=== PATIENT | male | born 1960 | race Caucasian/White ===

== ENCOUNTER 2016-11-26 08:20 | Inpatient (IN) | payer OTHER ==
--- NOTE | ~2016-11-26 | CO ---
Unit #: [id number] #: [id number] Patient: CATY JONES [id number] [facility] [address] [facility]. [place], [place] [address] [id number] I MR#: [id number] NAME: CATY JONES ROOM: [facility] Age: 56 Sex: M Admission Date: 11/26/2016 : 1960 Attending Physician: Christy Strauss M.D. Primary Care Physician: Guille Bach M.D. Consultation Date: 12/01/2016 CONSULTATION REPORT REASON FOR CONSULTATION Systolic congestive heart failure. 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 In March 2012, the patient did undergo a coronary artery bypass graft x5 for severe atherosclerotic coronary artery disease. At that time, he had a 2D echo done that showed an EF of 35% to 40%. Additional past medical history includes coronary artery disease, hypertension, chronic pain, and tobaccoism. The patient initially went to [facility] ER with the complaint of bilateral leg pain, having trouble walking, and some shortness of breath with ambulating. The patient denied any chest pain, nausea, vomiting, fever, chills, or rigors. He denied any dizziness or syncopal episode. The patient was transferred to [facility] and was admitted for dyspnea and acute COPD exacerbation. The patient also was found to have acute on chronic kidney disease and hypertension. The patient is also being treated for pneumonia. Cardiology was consulted for a BNP of 755. An echo was done here at [facility] and showed that he has a left ventricular ejection fraction of 25% to 30%. The patient was also placed on a fluid restriction. PAST MEDICAL HISTORY 1. On April 11, 2012, the patient underwent a coronary artery bypass graft x5 for severe atherosclerotic coronary artery disease. Grafts include MENDES to mid LAD, individual SVG to diagonal and acute marginal, sequential SVG to the first obtuse marginal and posterior left ventricular branch of the circumflex with right leg endovein harvest. This was done by Dr. Parekh. 2. Echocardiogram from 2011 shows an EF of 35% to 40%. 3. Coronary artery disease. 4. Hypertension. 5. Bilateral leg pain, possibly neuropathy. 6. Chronic pain syndrome. 7. Chronic kidney disease. 8. Chronic obstructive pulmonary disease. 9. Tobaccoism. PAST SURGICAL HISTORY Coronary artery bypass grafting x5 as detailed above. Unit #: [id number] #: [id number] Patient: CATY JONES ALLERGIES No known allergies. HOME MEDICATIONS 1. Labetalol 200 mg p.o. 3 times daily p.r.n. 2. Amlodipine 10 mg p.o. daily p.r.n. 3. Hydrocodone 10 mg 1 tab p.o. 3 times daily p.r.n. FAMILY HISTORY Diabetes and hypertension. SOCIAL HISTORY Patient endorses tobaccoism. He smokes approximately one pack per day but is attempting to cut down. He denies any alcohol or illicit drug abuse. The patient lives with his father. REVIEW OF SYSTEMS A complete 12-point review of systems was done and the findings are as detailed above. PHYSICAL EXAMINATION GENERAL: Patient is awake, alert, and sitting up in bed. VITAL SIGNS: Temperature 97.5, heart rate 67, respirations 20, blood pressure 142/45, and he is oxygenation 97%. HEENT: Head is atraumatic and normocephalic. Pupils are equal, round, and reactive. Extraocular movements are intact. No drainage from ears or nares. NECK: Supple. Trachea is midline. No JVD. Normal carotid upstrokes. LUNGS: Diminished bilaterally. No wheezes, rales, or rhonchi. CARDIOVASCULAR: S1 and S2, regular rate and rhythm. ABDOMEN: Soft, nontender, and nondistended. Bowel sounds are positive in all four quadrants. No hepatosplenomegaly is appreciated. SKIN: Appears to be warm, dry, and intact, without any unusual rashes or lesions. EXTREMITIES: No clubbing or cyanosis. Patient has +1 bilateral lower extremity edema. NEUROLOGIC: Alert and oriented x3. He is pleasant and conversant. No focal deficits. Cranial nerves II-XII intact. DIAGNOSTIC STUDIES LABORATORY: BNP 755. Sodium 131, potassium 5.5, chloride 102, CO2 of 20, BUN 56, creatinine 2.2, and glucose 278. Troponin is less than 0.03. TSH 0.51. ASSESSMENT 1. Acute chronic obstructive pulmonary disease exacerbation. 2. Acute systolic congestive heart failure with an ejection fraction of 25% to 30%. 3. Pneumonia. 4. Acute on chronic kidney disease. 5. Hypertension. 6. Hyperlipidemia. 7. Coronary artery disease with history of coronary artery bypass grafting x5. 8. Tobaccoism. PLAN Will attempt to obtain cardiac catheterization report or open heart report Unit #: [id number] #: [id number] Patient: CATY JONES from [facility]. Will start the patient on aspirin 81 mg p.o. daily and Lipitor 10 mg p.o. daily. At this time, will stop the patient's labetalol and start the patient on Coreg 12.5 mg p.o. b.i.d. and hold for systolic blood pressure below 100 or heart rate less than 55. Please note that I, Kellie Romano, did not interview or examine the patient on December 01, 2016. This was done by Dr. Piedad Hinojosa. Dictated by... Kellie Romano A.P.R.N. for Piedad Hinojosa M.D. AM/am TD: 12/02/2016 15:33 JOB #: [id number] CONSULTATION REPORT X Kellie Romano APRN X CONSULTATION REPORT
--- NOTE | ~2016-11-26 | US84 ---
[id number] [facility]. [facility] [address] [place], [place] [address] [id number] I MR#: [id number] Acc #: [id number] NAME: CATY JONES : 1960 SEX: M STUDY DATE/TIME: 11/26/2016 13:49 UNIT: C2A ROOM: 217 STUDY DESCRIPTION: US LE Veins Complete Gianni Stdy Attending Physician: Christy Strauss M.D. Ordering Physician: Christy Strauss M.D. Primary Care Physician: Guille Bach M.D. MEDICAL IMAGING REPORT This report is preliminary unless electronic signature is present EXAM Bilateral lower extremity venous duplex, 11/26/2016 HISTORY Bilateral lower extremity pain for 2 days, calf pain and tightness, evaluate for deep vein thrombosis. TECHNIQUE Venous ultrasound examination of both lower extremities was performed using grayscale, spectral Doppler and color flow Doppler imaging. FINDINGS The examination is negative. There is no evidence of deep venous thrombus from the groin to the lower calf bilaterally. Visualized greater saphenous veins are also patent. IMPRESSION Negative examination. No evidence of lower extremity deep venous thrombosis. Dictated by... Phil Nazario M.D. THIS IS AN ELECTRONICALLY VERIFIED REPORT Phil Nazario M.D. at 11/27/2016 6:06 AM BRYAN/charli TD: 11/26/2016 21:43 JOB #: [id number] MEDICAL IMAGING REPORT COPY
--- NOTE | ~2016-11-26 | PFT ---
[id number] [facility] [address] [facility]. [place], [place] [address] [id number] MR#: [id number] NAME: CATY JONES ROOM: 217 SEX: M STUDY DATE/TIME: 11/28/2016 : 1960 AGE: 56 STUDY DESCRIPTION: Attending Physician: Christy Strauss M.D. Primary Care Physician: Guille Bach M.D. PULMONARY DIAGNOSTIC REPORT EXAM Pulmonary function test FINDINGS Spirometry is suggestive of a restrictive defect with an FVC of 2.94 L, 62% of predicted. Flow-volume loop is consistent with a restrictive defect. Please note restrictive defect cannot be confirmed by spirometry alone and would suggest full PFTs with lung volumes and diffusion capacity if clinically indicated. Dictated by... Enrique Parisi M.D. WOL/cf TD: 11/28/2016 16:53 JOB #: [id number] PULMONARY DIAGNOSTIC REPORT
--- NOTE | ~2016-11-26 | CT4 ---
[facility]. [facility] A Service of [facility] RADIOLOGY TEXT RESULTS PATIENT: CATY JONES LOCATION: [facility] - : [birth year] UNIT #: [id number] AGE: [address]: Christy Strauss MD SEX: M ORDER DR: [id number] [facility] [address] [facility]. [place], [place] [address] [id number] I MR#: [id number] Acc #: [id number] NAME: CATY JONES : 1960 SEX: M STUDY DATE/TIME: 11/30/2016 10:48 UNIT: A U ROOM: [facility] STUDY DESCRIPTION: CT Abd and Pelv Wo Cont Attending Physician: Christy Strauss M.D. Ordering Physician: Christy Strauss M.D. Primary Care Physician: Guille Bach M.D. MEDICAL IMAGING REPORT This report is preliminary unless electronic signature is present EXAM CT of the abdomen and pelvis without contrast INDICATIONS 56-year-old male with pain all over, back pain, chronic renal failure, hypertension. TECHNIQUE CT of the abdomen and pelvis was performed without contrast. Coronal and sagittal reformatted images obtained. No comparisons. This CT exam was performed with one or more of the following radiation dose reduction techniques: automatic control, adjustment of mA and/or kV according to patient size, and iterative reconstruction. FINDINGS Please see separately dictated CT of the chest for findings above the diaphragm. The liver is unremarkable. The gallbladder is contracted. The spleen is unremarkable. There are intrarenal vascular calcifications. The kidneys are otherwise unremarkable. The adrenal glands and pancreas are unremarkable. PELVIS: Colon is unremarkable. The appendix is normal. No free fluid. Bilateral fat-containing inguinal hernias. Diffuse subcutaneous edema. The bone windows demonstrate chondrocalcinosis in the symphysis pubis as well as degenerative changes of the lumbar spine. IMPRESSION 1. Trace pleural fluid in the lung bases. 2. No acute intraabdominal or pelvic abnormality. 3. Additional findings as described Dictated by... Luis Arias M.D. [facility] A Service of [facility] RADIOLOGY TEXT RESULTS PATIENT: CATY JONES LOCATION: [facility] 307-01 : [birth year] UNIT #: [id number] AGE: [address]: Christy Strauss MD SEX: M ORDER DR: THIS IS AN ELECTRONICALLY VERIFIED REPORT Luis Arias M.D. at 12/02/2016 10:44 AM JH/luca TD: 12/01/2016 04:26 JOB #: [id number] MEDICAL IMAGING REPORT COPY
--- NOTE | ~2016-11-26 | CO ---
Unit #: [id number] #: [id number] Patient: CATY JONES [id number] [address] [place], [place] [address] [id number] I MR#: [id number] NAME: CATY JONES. ROOM: 217 Age: 56 Sex: M Admission Date: 11/26/2016 : 1960 Attending Physician: Christy Strauss M.D. Primary Care Physician: Guille Bach M.D. Consultation Date: 11/27/2016 CONSULTATION REPORT REASON FOR CONSULT Shortness of breath. HISTORY OF PRESENT ILLNESS This is a 56-year-old male with past medical history significant for hypertension, coronary artery disease status post CABG and extensive smoking since age 15, who presented to [facility] ER with complaint of bilateral lower extremity tenderness, burning sensation and stiffness. Patient also noted that he has been short of breath for the last few weeks. He denied any significant dyspnea at baseline. Patient stated that during the wintertime he always gets some wheezing and congestion. Patient denied any fever, chills or sore throat. PAST MEDICAL HISTORY 1. Hypertension. 2. Coronary artery disease. 3. Tobacco abuse. 4. Chronic pain. HOME MEDICATION 1. Labetalol. 2. Amlodipine. 3. Hydrocodone. SOCIAL HISTORY Patient is a lifelong smoker. He started smoking at age 15. He smokes currently one pack over a week but he used to smoke one pack per day, no history of alcohol or drug abuse. PAST SURGICAL HISTORY CABG. ALLERGIES No known drug allergy. FAMILY HISTORY Diabetes and hypertension. REVIEW OF SYSTEMS Twelve-point review of systems was obtained and was negative except for what was mentioned in the HPI. Unit #: [id number] #: [id number] Patient: CATY JONES PHYSICAL EXAMINATION GENERAL: The patient is lying comfortably in no acute distress. VITAL SIGNS: Blood pressure 132/62. Respiratory rate 21. HEENT: Normocephalic and atraumatic. PERRLA. EOMI. NECK: Supple. No JVD. No lymphadenopathy. CHEST: Decreased breath sounds bilaterally but no overt wheezing or crackles. HEART: S1, S2. No murmur, gallops or rubs. ABDOMEN: Soft, nontender. Bowel sound is positive. No hepatosplenomegaly. EXTREMITIES: +1 edema. SKIN: No rashes. RESIDENT INTERN: Awake, alert, oriented x3. No focal motor/sensory deficit. DIAGNOSTIC STUDIES LABORATORY: Creatinine 2.1, sodium 134, calcium 8.0, white blood count 10.8, hemoglobin 12.2. IMAGING: Tests unavailable. ASSESSMENT 1. Dyspnea. 2. Bilateral lower extremity edema. 3. Hypertension. 4. Coronary artery disease. 5. Rule out chronic obstructive pulmonary disease. 6. Smoking. 7. Hyperglycemia. PLAN 1. Patient is hemodynamically stable on 1 L nasal cannula at this point. 2. Physical exam is inconsistent with clear and overt COPD exacerbation but COPD cannot be ruled out as an underlying etiology of chronic shortness of breath. 3. Patient will need bedside spirometry and 2D echo. 4. Will obtain BNP. 5. Will continue patient on bronchodilator. 6. IV steroid probably can be discontinued tomorrow. Dictated by... Danish He M.D. EA/keturah TD: 11/27/2016 19:22 JOB #: [id number] Unit #: [id number] #: [id number] Patient: CATY JONES Dru CONSULTATION REPORT X DANISH LYONS MD CONSULTATION REPORT
--- NOTE | ~2016-11-26 | XA59 ---
[facility] A Service of [facility] RADIOLOGY TEXT RESULTS PATIENT: CATY JONES LOCATION: [facility] 307-01 : [birth year] UNIT #: [id number] AGE: [address]: Christy Strauss MD SEX: M ORDER DR: [id number] [facility] [address] [place], [place] [address] [id number] I MR#: [id number] Acc #: [id number] NAME: CATY JONES. : 1960 SEX: M STUDY DATE/TIME: 12/05/2016 10:07 UNIT: SEDOF ROOM: [facility] STUDY DESCRIPTION: XA BX Perc Renal Attending Physician: Christy Strauss M.D. Ordering Physician: Gianni Garcia Jr., M.D. Primary Care Physician: Guille Bach M.D. MEDICAL IMAGING REPORT This report is preliminary unless electronic signature is present EXAM XA biopsy percutaneous renal. DATE OF EXAM 12/05/2016 CLINICAL HISTORY Renal insufficiency, acute kidney injury superimposed on chronic renal insufficiency. Proteinuria. Hepatitis C. TECHNIQUE NOTE: This CT exam was performed with one or more of the following radiation dose reduction techniques: automatic exposure control, adjustment of mA and/or kV according to patient size, and iterative reconstruction. PROCEDURE Successful CT-guided core biopsy of the left kidney. 3 generic core specimens were obtained and sent for testing as requested without complication. Standard sterile technique was followed. FINDINGS Please see CT-guided generic renal biopsy for results. Dictated by... Aravind Norwood M.D. THIS IS AN ELECTRONICALLY VERIFIED REPORT Aravind Norwood M.D. at 12/06/2016 3:36 PM LALO/kendall TD: 12/05/2016 15:47 [facility] A Service of [facility] RADIOLOGY TEXT RESULTS PATIENT: CATY JONES LOCATION: [facility] 307-01 : [birth year] UNIT #: [id number] AGE: [address]: Christy Strauss MD SEX: M ORDER DR: JOB #: [id number] MEDICAL IMAGING REPORT COPY
--- NOTE | ~2016-11-26 | HP ---
Unit #: [id number] #: [id number] Patient: CATY JONES [id number] [address] [place], [place] [address] [id number] MR#: [id number] NAME: CATY JONES ROOM: 217 Age: 56 Sex: M Admission Date: 11/26/2016 : 1960 Attending Physician: Christy Strauss M.D. Primary Care Physician: Guille Bach M.D. HISTORY AND PHYSICAL CHIEF COMPLAINT Leg pain, shortness of breath, and just not feeling right. HISTORY OF PRESENT ILLNESS This is a 56-year-old male who has a past medical history of hypertension, coronary artery disease, status post CABG, bilateral leg pain, tobacco abuse, chronic pain, came to [facility] ER with a complaint of bilateral leg pain, burning in the feet bilateral, which has been going on for some time, having problem with walking. Also complained of some shortness of breath, especially on ambulating. The patient is a smoker, used to smoke two packs per day and now he smokes only 1/2 to 1 pack per day. Does not complain of any chest pain. He does complain of anxiety issues and according to him he lives with his dad and gets very anxious. His primary care provider is Dr. Tapia with Dr. Hampton. Does not complain of any fever, chills or rigors. No complaint of any numbness or tingling of the left upper extremity. No complaint of dizziness or syncopal episode. PAST MEDICAL HISTORY 1. Hypertension. 2. Coronary artery disease, status post CABG. 3. Tobacco abuse. 4. Chronic pain. HOME MEDICATIONS Labetalol 200 mg 3 times a day; amlodipine 10 mg daily; hydrocodone 1 tablet 3 times a day. SOCIAL HISTORY Patient is a smoker. He smoked almost one pack per day, according to him, he has cut down. He used to smoke two packs per day. No history of alcohol abuse or drug abuse. He lives with his father. PAST SURGICAL HISTORY History of CABG in the past. ALLERGIES No known drug allergies. FAMILY HISTORY Significant for diabetes and hypertension. REVIEW OF SYMPTOM As per history of presenting illness. Complete twelve point review of system was done and findings were as above. Unit #: [id number] #: [id number] Patient: CATY JONES PHYSICAL EXAMINATION GENERAL: The patient is lying comfortably in bed in no respiratory distress. VITAL SIGNS: Blood pressure is 137/51, respiratory rate is 17, pulse is 64, temperature 97.9. HEENT: Head is normocephalic. Eyes movements are normal. NECK: Supple. Mouth normal mucosa. The patient is edentulous. CHEST: Decreased air entry bilateral. CVS: S1 and S2 positive, regular rhythm. ABDOMEN: Soft. EXTREMITIES: Trace edema. Otherwise stable. Pulses are palpable. FLY SETTER: Awake, alert and oriented x3. No focal neurological deficit. LYMPHATIC: There is no neck or cervical lymphadenopathy. PSYCH: Seems to be kind of anxious. DIAGNOSTIC STUDIES LABORATORY STUDIES: Workup so far done - WBC 10.8, hemoglobin 12.2, hematocrit 36.7 and platelet count of 182. Sodium 135, potassium 4.6, chloride 106, BUN 21, creatinine 2.1. CPK 136. Urinalysis shows two to five granulite cast, 3+ protein. Urine drug screen is positive for opiates. Glucose is 122. Hemoglobin A1c 6.1. Ultrasound of bilateral lower extremity was done, which was negative for any DVT. Ultrasound of kidneys have been done, which shows normal bilateral renal ultrasound. ASSESSMENT AND PLAN The patient is being admitted to med/surg unit with: 1. Dyspnea, possible COPD exacerbation. 2. Acute on chronic kidney disease. 3. Hypertension. 4. Coronary artery disease, status post CABG. 5. Bilateral leg pain, possible neuropathy. 6. Tobacco abuse. 7. Chronic pain. 8. Hyperglycemia. PLAN Admit to med/surg unit. Dr. Garcia has been consulted. Patient was treated with IV fluids, most likely he has chronic kidney disease. Lipid profile will be done. Neurontin is being started for a bilateral leg pain, possible neuropathy. IV Solu-Medrol 40 mg q.8 is being given; Symbicort 160/4.5 one puff b.i.d. is being started; spirometry bedside will be done. D-dimer will be don't. Aspirin 81 mg daily is being done. Plan of care has been discussed with patient. Tobacco cessation counseling done. Dictated by Supa Castañeda TD: 11/27/2016 12:42 JOB #: [id number] Unit #: [id number] #: [id number] Patient: CATY JONES HISTORY AND PHYSICAL X Christy Strauss MD X HISTORY AND PHYSICAL
--- NOTE | ~2016-11-26 | US6 ---
[facility] A Service of [facility] RADIOLOGY TEXT RESULTS PATIENT: CATY JONES LOCATION: [facility] : 60 UNIT #: [id number] AGE: [address]: Christy Strauss MD SEX: M ORDER DR: [id number] [facility] [address] [place], [place] [address] [id number] I MR#: [id number] Acc #: [id number] NAME: CATY JONES : 1960 SEX: M STUDY DATE/TIME: 12/05/2016 8:16 UNIT: A PCU ROOM: [facility] STUDY DESCRIPTION: US Abdominal Limited Attending Physician: Christy Strauss M.D. Ordering Physician: Aung Buckner M.D. Primary Care Physician: Guille Bach M.D. MEDICAL IMAGING REPORT This report is preliminary unless electronic signature is present EXAM Right upper quadrant abdominal ultrasound. DATE OF EXAM 12/05/2016 INDICATIONS Hepatitis C. Post-prandial generalized abdominal pain for the past 20 years. PROCEDURE Grewal-scale and Doppler imaging right upper quadrant of the abdomen. COMPARISON CT from 11/30/2016. FINDINGS Visualized portions of pancreas are unremarkable. The liver measures 16.9 cm. No liver mass on submitted images. Right kidney measures 11.7 cm. Unremarkable gallbladder. Common duct measures 3 mm. IMPRESSION Negative right upper quadrant abdominal ultrasound. Dictated by... Ben Eid M.D. THIS IS AN ELECTRONICALLY VERIFIED REPORT Ben Eid M.D. at 12/06/2016 7:04 AM EED/kendall TD: 12/05/2016 16:03 [facility] A Service [facility] RADIOLOGY TEXT RESULTS PATIENT: CATY JONES LOCATION: [facility] : 60 UNIT #: [id number] AGE: [address]: Christy Strauss MD SEX: M ORDER DR: SARA #: [id number] MEDICAL IMAGING REPORT COPY
--- NOTE | ~2016-11-26 | CR63 ---
[facility] A Service of [facility] RADIOLOGY TEXT RESULTS PATIENT: CATY JONES LOCATION: A : 60 UNIT #: [id number] AGE: [address]: Christy Strauss MD SEX: M ORDER DR: [id number] [facility] [address] [place], [place] [address] [id number] I MR#: [id number] Acc #: [id number] NAME: CATY JONES : 1960 SEX: M STUDY DATE/TIME: 11/27/2016 18:54 UNIT: [facility] ROOM: [facility] STUDY DESCRIPTION: CR Chest 2 View Attending Physician: Christy Strauss M.D. Ordering Physician: Gianni Garcia Jr., M.D. Primary Care Physician: Guille Bach M.D. MEDICAL IMAGING REPORT This report is preliminary unless electronic signature is present EXAM PA and lateral chest. HISTORY Shortness of air for 1 day. FINDINGS 2 views of the chest demonstrate mild cardiac enlargement. Pulmonary vascularity is normal. No airspace infiltrates or effusions. Sternotomy with mediastinal clips and markers. Mild hypertrophic spurring, upper and lower thoracic spine. No active disease in the lungs. IMPRESSION 1. Mild cardiac enlargement. 2. Prior CABG. 3. No focal infiltrates. 1. Dictated by... Ethan Lazo M.D. THIS IS AN ELECTRONICALLY VERIFIED REPORT Ethan Lazo M.D. at 11/28/2016 3:55 PM DFL/pc TD: 11/28/2016 08:39 JOB #: [id number] MEDICAL IMAGING REPORT COPY
--- NOTE | ~2016-11-26 | CT57 ---
[facility] A Service of [facility] & [facility] RADIOLOGY TEXT RESULTS PATIENT: CATY JONES LOCATION: [facility] - : 60 UNIT #: [id number] AGE: [address]: Christy Strauss MD SEX: M ORDER DR: [id number] [facility] [address] [place], [place] [address] [id number] I MR#: [id number] Acc #: [id number] NAME: CATY JONES : 1960 SEX: M STUDY DATE/TIME: 11/30/2016 15:15 UNIT: A [facility] ROOM: [facility] STUDY DESCRIPTION: CT Chest Wo Cont Attending Physician: Christy Strauss M.D. Ordering Physician: Christy Strauss M.D. Primary Care Physician: Guille Bach M.D. MEDICAL IMAGING REPORT This report is preliminary unless electronic signature is present EXAM CT of the chest without contrast INDICATIONS 56-year-old male with shortness of breath since yesterday. TECHNIQUE CT of the chest was performed without contrast. Coronal and sagittal reformatted images obtained. There are no comparisons available. This CT exam was performed with one or more of the following radiation dose reduction techniques: automatic control, adjustment of mA and/or kV according to patient size, and iterative reconstruction. FINDINGS There is a small airspace consolidation in the medial left lower lobe compatible with pneumonia. There is a trace pleural fluid bilaterally. There is minimal bibasilar atelectasis. There are mildly prominent but nonspecific mediastinal lymph nodes. These may be reactive given the findings in the lungs. There has been a prior sternotomy CABG. Please refer to separately dictated CT of the abdomen and pelvis for findings in the upper abdomen. Bone windows are unremarkable. IMPRESSION 1. There is a small airspace consolidation in the medial left lower lobe that is consistent with pneumonia. Follow up to clearing is recommended. 2. Trace pleural fluid bilateral. Dictated by... Luis Arias M.D. THIS IS AN ELECTRONICALLY VERIFIED REPORT Luis Arias M.D. at 12/02/2016 10:44 AM [facility] A Service of [facility] & [facility] / [facility] RADIOLOGY TEXT RESULTS PATIENT: CATY JONES LOCATION: [facility] 307-01 : 60 UNIT #: [id number] AGE: [address]: Christy Strauss MD SEX: M ORDER DR: JH/luca TD: 12/01/2016 04:00 JOB #: [id number] MEDICAL IMAGING REPORT COPY
--- NOTE | ~2016-11-26 | CO ---
Unit #: [id number] #: [id number] Patient: CATY GILLIS [id number] [address] [place], [place] [address] [id number] Maulik MR#: [id number] NAME: CATY GILLIS ROOM: 217 Age: 56 Sex: M Admission Date: 11/26/2016 : 1960 Attending Physician: Christy Strauss M.D. Primary Care Physician: Guille Bach M.D. Consultation Date: 11/26/2016 CONSULTATION REPORT REASON FOR CONSULTATION Acute on chronic kidney disease. HISTORY OF PRESENT ILLNESS Mr. Gillis is a 56-year-old gentleman whom I met for the first time last week in the office as a new patient. My dictation is still pending typing up from our service, but I recall having had seen him for abnormal creatinine levels and poorly controlled blood pressure. Review of his labs that were sent for the appointment showed that his creatinine has been anywhere between about 1.6 and 1.8 over the last few months. He has had very difficult to control blood pressure and a history of noncompliance. He had been at least a year or so with no medical treatment before seeking a new primary care doctor. He does have a history of heart disease and does continue to smoke. At that visit, we had increased his labetalol from 100 to 200 mg t.i.d. He states that his blood pressure was still running high this weekend, but looks like it is doing better here. His main complaint about coming to the emergency room was of lower extremity pain and possible swelling. There was a concern about a possible DVT, so he was sent to [facility] for evaluation. Dopplers have been done, but results are pending. He denies any fevers or chills. No urinary complaints. PAST MEDICAL HISTORY Significant for hypertension, chronic kidney disease, coronary artery disease, chronic pain syndrome, and tobacco abuse. PAST SURGICAL HISTORY He has had CABG. HOME MEDICATIONS Labetalol 200 mg t.i.d., amlodipine 10 mg a day, and hydrocodone p.r.n. ALLERGIES He has no known drug allergies. FAMILY HISTORY Significant for diabetes and hypertension. SOCIAL HISTORY The patient is a smoker. He does use hydrocodone at home. No alcohol abuse or IV drug use that I am aware of. REVIEW OF SYSTEMS A complete 12-point review of systems was completed with the above Unit #: [id number] #: [id number] Patient: CATY GILLIS. In addition, he denies any fevers or chills. No headache or dizziness. No blurry vision. No nosebleed, sore throat, or earache. No chest pain or palpitations. Some cough. No hemoptysis. No nausea, vomiting, or diarrhea. No dysuria. No hematuria. No rashes or itching. No flank pain. No night sweats or hot flashes. No intolerance to heat or cold. No bleeding issues. No known trauma to the legs causing the pain and swelling, but he does state that he walked a lot this past weekend. Unless otherwise indicated, the review of systems was negative. PHYSICAL EXAMINATION VITAL SIGNS: The patient is afebrile, pulse 69, respiratory rate 17, blood pressure 146/57. GENERAL: This is a 56-year-old male, who is alert, appears anxious and fidgety, but in no acute distress. HEENT: Head is atraumatic and normocephalic. Eyes show pink conjunctivae with no scleral icterus. No nasal drainage or nosebleed. Oropharynx is moist. No thrush. NECK: Shows no rigidity, no JVD. HEART: Regular rate and rhythm with no murmurs, gallops, or rubs appreciated. LUNGS: Mostly clear with no wheezing. Breathing is nonlabored. ABDOMEN: Soft, nontender, and nondistended. Bowel sounds are present. EXTREMITIES: No lower extremity cyanosis noted. He does have trace lower extremity edema, nonpitting in nature. SKIN: Skin in lower legs that appear to be tender to palpation. Skin is without rashes. MUSCULOSKELETAL: No CVA tenderness to palpation. NEUROLOGIC: Cranial nerves grossly intact with no gross motor deficits. LYMPHATIC: There is no neck or cervical lymphadenopathy. PSYCHIATRIC: It is noteworthy for some apparent anxiety, but no depression symptoms and appears to have a normal affect. DIAGNOSTIC STUDIES LABORATORY RESULTS: Blood sugar tonight 180. CPK level was normal. Chemistry earlier this morning showed a potassium of 4.6, creatinine was up to 2.1. CBC showed a white count of 10.8, hemoglobin 12.2, platelet count 182 with no peripheral eosinophilia. Again, recalling from the office prior baseline creatinine had been in the 1.6 to 1.8 range. ASSESSMENT AND PLAN 1. Mild acute on underlying chronic kidney disease, stage 3. It was thought in the office his chronic kidney disease was due to hypertensive nephrosclerosis and small vessel atherosclerotic disease. He has a history of noncompliance and poorly controlled blood pressure. His acute kidney injury also may be due to hypertensive issues as he says it was running high over the weekend, but seems to be doing better here. I do feel we can discontinue his fluids since his CPK level was okay. We will check urine and urine studies as well as a kidney ultrasound. Of note, he did get Toradol in the emergency room for pain, so it would not surprise me if his creatinine is not higher tomorrow. 2. Hypertension. Home medications have been renewed and blood pressure seems reasonable at this time. 3. Leg pain. Question whether this is neuropathy as he does have elevated sugars. Hemoglobin A1c is pending. I will try him on some Neurontin. Dopplers are pending and he did get a dose of Lovenox in the emergency room. 4. Tobacco abuse. Counseling was given. 5. History of coronary artery bypass grafting. It is not clear why he is Unit #: [id number] #: [id number] Patient: CATY GILLIS not on an aspirin or statin. I will check a lipid profile in the morning. 6. History of noncompliance. 7. Chronic pain syndrome. I would like to thank Dr. Strauss for this consult and the opportunity to participate in evaluation and care of Mr. Gillis. Dictated by... Gianni Garcia Jr., M.D. GALEN/bang TD: 11/26/2016 23:20 JOB #: [id number] CONSULTATION REPORT X Gianni Garcia MD X CONSULTATION REPORT
--- NOTE | ~2016-11-26 | XA59 ---
[facility] A Service of [facility] & [facility] RADIOLOGY TEXT RESULTS PATIENT: CATY JONES LOCATION: [facility] : 60 UNIT #: [id number] AGE: [address]: Christy Strauss MD SEX: M ORDER DR: [id number] [id number] [facility]. [place], [place] [address] [id number] MR#: [id number] Acc #: [id number] NAME: CATY JONES. : 1960 SEX: M STUDY DATE/TIME: 12/04/2016 10:49 UNIT: A PCU ROOM: [facility] STUDY DESCRIPTION: XA BX Perc Renal Attending Physician: Christy Strauss M.D. Ordering Physician: Gianni Garcia Jr., M.D. Primary Care Physician: Guille Bach M.D. MEDICAL IMAGING REPORT This report is preliminary unless electronic signature is present PROCEDURE Attempted right kidney biopsy INDICATIONS 56-year-old male with chronic renal insufficiency. MEDICATIONS 3 mg of Versed IV and 50 mcg Fentanyl IV. Conscious sedation time was monitored by appropriately credentialed radiology nursing staff. The risks, benefits and alternatives of the procedure were discussed with the patient and informed consent was obtained. In the procedure room a time was performed confirming correct patient and procedure. All elements of maximum sterile-barrier technique utilized according to guidelines appropriate for the procedure. TECHNIQUE/FINDINGS Patient was placed on his stomach and preliminary CT scan was performed identifying the kidneys. The skin overlying the left kidney was prepped and draped usual sterile fashion. 1% lidocaine utilized to anesthetize the skin and underlying subcutaneous tissues. Next a small 25-gauge needle was advanced just beneath the skin surface and preliminary CT scan was performed to identify the needle trajectory. However, at this time the patient became very agitated and could not lie still. Attempts were made to lay the patient on his side to see if it was more comfortable, however, he was still quite agitated and was unable to lay still despite the use of conscious sedation. The procedure was then cancelled. Recommend rescheduling the procedure under anesthesia if the patient is in need of a kidney biopsy. The patient was then transported back to his room. IMPRESSION Attempted kidney biopsy was unsuccessful as the patient was unable to [facility] Service of [facility] RADIOLOGY TEXT RESULTS PATIENT: CATY JONES LOCATION: [facility] 307-01 : 60 UNIT #: [id number] AGE: [address]: Christy Strauss MD SEX: M ORDER DR: still despite conscious sedation and was quite agitated. Suggest rescheduling the patient with anesthesia for biopsy. Dictated by... Luis Arias M.D. THIS IS AN ELECTRONICALLY VERIFIED REPORT Luis Arias M.D. at 12/06/2016 7:33 AM Wyatt TD: 12/05/2016 06:44 JOB #: [id number] MEDICAL IMAGING REPORT COPY
--- NOTE | ~2016-11-26 | US77 ---
[facility] A Service of [facility] & [facility] RADIOLOGY TEXT RESULTS PATIENT: CATY JONES LOCATION: A : 60 UNIT #: [id number] AGE: [address]: Christy Strauss MD SEX: M ORDER DR: [id number] [facility] [address] [place], [place] [address] [id number] I MR#: [id number] Acc #: [id number] NAME: CATY JONES : 1960 SEX: M STUDY DATE/TIME: 11/26/2016 21:53 UNIT: [facility] ROOM: [facility] STUDY DESCRIPTION: US Kidney Bilateral Complete Attending Physician: Christy Strauss M.D. Ordering Physician: Gianni Garcia Jr., M.D. Primary Care Physician: Guille Bach M.D. MEDICAL IMAGING REPORT This report is preliminary unless electronic signature is present EXAM Bilateral renal ultrasound, 11/26/2016 HISTORY Chronic kidney disease. Diabetes. Hypertension. BUN 21. Creatinine 2.1. GFR 34.9. COMPARISON None FINDINGS The right kidney measures 11.7 x 5.9 x 6.5 cm. The left kidney measures 13.8 x 6.7 x 7.4 cm. Both kidneys maintain normal cortical thickness and echotexture. No cystic or solid renal lesion, shadowing stone or hydronephrosis is seen. Urinary bladder is distended with fluid but otherwise appears unremarkable. IMPRESSION Normal bilateral renal ultrasound. Dictated by... Olga Gooden M.D. THIS IS AN ELECTRONICALLY VERIFIED REPORT Olga Gooden M.D. at 11/27/2016 2:09 PM Yan TD: 11/27/2016 10:02 JOB #: [id number] MEDICAL IMAGING REPORT COPY
--- NOTE | ~2016-11-26 | CT134 ---
[facility] A Service of [facility] RADIOLOGY TEXT RESULTS PATIENT: CATY JONES LOCATION: [facility] : 60 UNIT #: [id number] AGE: [address]: Christy Strauss MD SEX: M ORDER DR: [id number] [place], [place] [address] [id number] I MR#: [id number] Acc #: [id number] NAME: CATY JONES : 1960 SEX: M STUDY DATE/TIME: 12/05/2016 10:07 UNIT: C3A PCU ROOM: [facility] STUDY DESCRIPTION: CT Guide Attending Physician: Christy Strauss M.D. Ordering Physician: Christy Strauss M.D. Primary Care Physician: Guille Bach M.D. MEDICAL IMAGING REPORT This report is preliminary unless electronic signature is present EXAM CT-guided generic renal biopsy. DATE OF EXAM 12/05/2016 CLINICAL HISTORY Renal insufficiency, acute kidney injury superimposed on chronic renal insufficiency. Proteinuria. Hepatitis C. TECHNIQUE NOTE: This CT exam was performed with one or more of the following radiation dose reduction techniques: automatic exposure control, adjustment of mA and/or kV according to patient size, and iterative reconstruction. PROCEDURE Informed consent was obtained. Sedation was provided by the Department of Anesthesia. The skin site was selected with CT guidance and marked, sterilely prepped and draped and locally anesthetized. An INRAD needle gun was used to obtain core specimens from the uka-by-xvero pole of the left kidney. There are no complications. The patient tolerated the procedure well. IMPRESSION Successful CT-guided core biopsy of the left kidney. 3 generic core specimens were obtained and sent for testing as requested without complication. Standard sterile technique was followed. Dictated by... [facility] A Service [facility] RADIOLOGY TEXT RESULTS PATIENT: CATY JONES LOCATION: [facility] : 60 UNIT #: [id number] AGE: [address]: Christy Strauss MD SEX: M ORDER DR: Aravind Norwood M.D. THIS IS AN ELECTRONICALLY VERIFIED REPORT Aravind Norwood M.D. at 12/06/2016 3:36 PM LALO/kendall TD: 12/05/2016 15:44 JOB #: [id number] MEDICAL IMAGING REPORT COPY
--- NOTE | ~2016-11-26 | NM69 ---
[facility] A Service of [facility] & [facility] RADIOLOGY TEXT RESULTS PATIENT: CATY JONES LOCATION: [facility] : 60 UNIT #: [id number] AGE: [address]: Christy Strauss MD SEX: M ORDER DR: [id number] [facility] [address] [place], [place] [address] [id number] I MR#: [id number] Acc #: [id number] NAME: CATY JONES : 1960 SEX: M STUDY DATE/TIME: 11/28/2016 12:15 UNIT: [facility] ROOM: [facility] STUDY DESCRIPTION: NM Pulm Vent and Perf Attending Physician: Christy Strauss M.D. Ordering Physician: Christy Strauss M.D. Primary Care Physician: Guille Bach M.D. MEDICAL IMAGING REPORT This report is preliminary unless electronic signature is present EXAM Ventilation and perfusion lung INDICATIONS Elevated D-dimer and dyspnea, lower leg swelling and pain, shortness of air started 2 days ago. The ventilation study is done with 32.1 mCi of Tc99m DTPA in aerosol form. The perfusion study is done with 5.6 mCi technetium 99m MAA. The perfusion ventilation images are normal. There is no evidence pulmonary bullous. IMPRESSION Study, with no evidence of pulmonary embolus. Dictated by... Jose Daniel Flores M.D. THIS IS AN ELECTRONICALLY VERIFIED REPORT Jose Daniel Flores M.D. at 11/28/2016 3:25 PM Bridgett TD: 11/28/2016 14:46 JOB #: [id number] MEDICAL IMAGING REPORT COPY
--- NOTE | ~2016-11-26 | EKG ---
PATIENT: CATY JONES UNIT #: [id number] Ventricular Rate: 60 BPM Atrial Rate: 60 BPM P-R Interval: 168 ms QRS Duration: 100 ms Q-T Interval: 428 ms QTC Calculation(Bezet): 428 ms P [place]: 36 degrees Calculated R [place]: 113 degrees Calculated T [place]: 118 degrees Diagnosis Line: Normal sinus rhythm Diagnosis Line: Left posterior fascicular block Diagnosis Line: Nonspecific ST abnormality Diagnosis Line: Abnormal ECG Diagnosis Line: No previous ECGs available Diagnosis Line: Confirmed by VANNESSA MAR MD ([id number]) on 12/04/2016 Diagnosis Line: 7:22:13 PM INTERPRETING MD: ZAID YOUNG
--- NOTE | ~2016-11-26 | DS ---
Unit #: [id number] #: [id number] Patient: CATY JONES [id number] [place], [place] [address] [id number] I MR#: [id number] NAME: CATY JONES ROOM: [facility] Age: 56 Sex: M Admission Date: 11/26/2016 : 1960 Discharge Date: 12/06/2016 Attending Physician: Christy Strauss M.D. Primary Care Physician: Guille Bach M.D. DISCHARGE SUMMARY The patient had a lengthy stay because of multiple medical issues acutely going on. 1. Dyspnea, possible chronic obstructive pulmonary disease exacerbation. The patient was admitted to telemetry unit. Dr. He from Pulmonary was consulted and was started on albuterol inhaler and also low-dose steroid. The patient's saturation has been stable. COPD may need to be looked into as an outpatient. The patient will need outpatient spirometry testing done and also tobacco cessation counseling has been done. 2. Acute on chronic renal failure. The patient follows up with Nephrology as an outpatient. It was thought that he has hypertensive nephrosclerosis and small vessel atherosclerotic disease. He has a history of noncompliance and poorly controlled blood pressure. The patient had a kidney biopsy done in the hospital because he does have extensive proteinuria. The patient also had 2 to 5 rbc's in the urine. His acute renal insufficiency could be related to hepatitis C also. The patient will need hep C treatment done. Dr. Buckner was consulted. This treatment needs to be done as an outpatient. The patient needs to follow up with Dr. Buckner as an outpatient. The patient is on losartan for proteinuria. 3. Hypertension. The patient's blood pressure has much improved at this time. His medications were adjusted and it has improved. 4. Cardiomyopathy. The patient's echocardiogram was done during hospitalization. His ejection fraction is 25% to 30%. Dr. Hinojosa was consulted. The patient has a history of coronary artery disease, has had CABG in 2012 and he continued to smoke. The patient's cardiac medications have been adjusted as per their recommendation. The patient will need followup echocardiogram done in 3 months or so. If left ventricular ejection fraction is less than 35%, then he will need AICD. Again, tobacco cessation counseling has been done. The patient has an appointment with Dr. Hinojosa on 03/04/2017 at 10:30 a.m. with echo for left ventricular ejection fraction. 5. Bilateral leg pain possible secondary to neuropathy. The patient did receive Neurontin during hospitalization. Mom is not sure whether that has helped much, but that needs to be considered as outpatient. 6. Hyperlipidemia, he needs to continue his home medications. HOME MEDICATIONS Coreg 12.5 mg b.i.d.; Xanax 0.5 mg p.o. b.i.d., this has been started because of his anxiety issues; sodium bicarb 650 mg daily; prednisone 20 mg daily and tapering dose; albuterol inhaler q.6h p.r.n.; Omnicef 300 mg b.i.d., stop date 12/07/2016; furosemide 20 mg b.i.d.; Lipitor 10 mg daily; hydralazine 25 mg b.i.d.; Cozaar 50 mg daily; [place], continue home dose. Unit #: [id number] #: [id number] Patient: CATY JONES Please note, the patient did receive insulin during hospitalization for hyperglycemia, may be it was secondary to Solu-Medrol. The patient's hemoglobin A1c was done, which was 5.7. EXAMINATION ON DISCHARGE VITAL SIGNS: Blood pressure is 164/57, respiratory rate 18, pulse 71, temperature 98.1. LUNGS: Fair air entry. CVS: S1 and S2 positive. Regular rhythm. Decreased breath sounds. ABDOMEN: Bowel sounds positive. EXTREMITIES: Decreasing knee edema. DIAGNOSTIC STUDIES LABORATORY RESULTS: On discharge, magnesium 2.5, sodium 139, potassium 5.3, chloride 104, BUN 56, creatinine 2.6, procalcitonin level 0.06. Complement C3 level was 159, in normal range. Complement C4 was 26, in normal range. Uric acid level was 8.3, and serum osmolality 278. TSH 0.51. Calcium was 8.2. PTH intact was 77, slightly elevated. Liver enzymes; AST 21, ALT 32, alkaline phosphatase 48. JOSE ANTONIO titer is negative. Hepatitis C antibody is reactive. IMAGING STUDIES: Ultrasound of abdomen was done on 12/05/2016, which shows negative right upper quadrant ultrasound. Kidney biopsies have been done, results are pending. DISCHARGE INSTRUCTIONS 1. The patient is being discharged home in stable condition. 2. Follow up with primary care provider in 1 week. 3. Follow up with Dr. Hinojosa on 03/04/2017 at 10:30 a.m. 4. Follow up with renal as scheduled. 5. BMP to be done in 1 week. 6. Follow up with Dr. Buckner in 2 to 3 weeks for hepatitis C treatment. 7. Tobacco cessation counseling done. Again, the patient has been advised to be compliant with medications and followup appointments. He verbalizes understanding. Dictated by... Supa Castañeda/bang TD: 12/07/2016 03:21 JOB #: [id number] DISCHARGE SUMMARY X Christy Strauss MD X DISCHARGE SUMMARY
[~2016-11-26 08:20] MED LIST: AMLODIPINE PO; ATENOLOL PO; BAYER ASPIRIN325 M1 PO; CLINDAMYCIN HC300 MG PO; COREG PO; DIAZEPAM PO; FLEXERIL PO; FLEXERIL10 MG PO; HYDROCODONE 10MG PO; KEFLEX500 M1 PO; KLOR-CON PO; LABETALOL PO; LORTAB 5/500 TA1 TA1 PO; MEDROL4 MG/DOSE- PO; MOTRIN600 M2 PO; PERCOCET 7.5-31 EACH PO; PERCOCET 7.5/321 TAB PO; PERCOCET PO; PERCOCET7.5 PO; PRINIVIL10 MG PO; TOBREX5 ML OP; ULTRAM PO; VALIUM10 MG PO; VOLTAREN75 MG PO; [UNRECOGNIZED DRUG - REMARK]
[2016-11-26 09:01] LABS: BASOPHIL# 0.1 X10e3 (0-0.3); BASOPHIL% 0.7 % (0-2.5); EOSINOPHIL# 0.2 X10e3 (0-0.7); EOSINOPHIL% 1.6 % (0.0-7.0); HEMATOCRIT 36.7 % (38.0-50.0); HEMOGLOBIN 12.2 gm/dL (13.0-16.0); LYMPHOCYTE% 9.2 % (17.0-45.0); MEAN CELL VOLUME 89.1 FL (83-96); MEAN CORPUSCULAR HEMOGLOBIN 29.6 PG (28-34); MEAN CORPUSCULAR HGB CONC 33.3 g/dL (30-36); MEAN PLATELET VOLUME 9.3 FL (6.5-11.5); MONOCYTE% 9.4 % (3.0-12.0); NEUTROPHIL# 8.5 X10e3 (1.5-7.1); NEUTROPHIL% 79.1 % (40-75); PLATELET COUNT 182 X10e3 (140-420); RED BLOOD COUNT 4.12 X10e (3.90-5.60); RED CELL DISTRIBUTION WIDTH 13.6 % (11.0-15.5); WHITE BLOOD COUNT 10.8 X10e3 (4.0-10.5)
[2016-11-26 09:04] LABS: DIFF IND NO
[2016-11-26 09:25] LABS: CALCIUM SERUM 8.4 mg/dL (8.4-10.2); CREATININE SERUM 2.1 mg/dL (0.6-1.4); GLOM FILT RATE Estimated 34.9 mL/min (>60); POTASSIUM 4.6 mmol/L (3.5-5.1)
[2016-11-26 19:42] LABS: URINE APPEARANCE CLOUDY; URINE BILIRUBIN NEG (NEG); URINE BLOOD 1+ (NEG); URINE COLOR YELLOW; URINE GLUCOSE 250 MG/DL (NEG); URINE KETONE NEG (NEG); URINE LEUKOCYTE ESTERASE NEG (NEG); URINE NITRATE NEG (NEG); URINE PH 5.5 (5-8); URINE PROTEIN 3+ (NEG); URINE SPECIFIC GRAVITY 1.018 (1.003-1.035); URINE UROBILINOGEN 0.2 MG/DL (NEG)
[2016-11-26 19:45] LABS: CULTURE INDICATED? YES; URINE BACTERIA AUWI NEG (NEGATIVE); URINE SQUAMOUS EPITHELIAL CELL OCC /[HPF]
[2016-11-26 19:54] LABS: URINE SPERM PRESENT
[2016-11-26 20:12] LABS: AMPHETAMINE NEG (NEG); BARBITURATES NEG (NEG); BENZODIAZEPINES NEG (NEG); COCAINE NEG (NEG); MARIJUANA NEG (NEG); OPIATES POS (NEG); TRICYCLIC ANTIDEPRESSANTS NEG (NEG); U METHADONE NEG (NEG)
[2016-11-27 05:38] LABS: ALBUMIN SERUM 2.7 g/dL (3.5-5.0); BILIRUBIN,TOTAL 0.7 mg/dL (0.2-2.0); BUN/CREATININE RATIO 10.47; CREATININE SERUM 2.1 mg/dL (0.6-1.4); GLOM FILT RATE Estimated 34.9 mL/min (>60); PHOSPHOROUS 3.2 mg/dL (2.5-4.6); POTASSIUM 4.6 mmol/L (3.5-5.1); PROTEIN TOTAL SERUM 5.5 g/dL (6.0-8.3)
[2016-11-27 20:16] LABS: CREATININE,RANDOM URINE 99 mg/dL
[2016-11-27 20:19] LABS: TOTAL PROTEIN,RANDOM URINE 624 mg/dl (<10)
[2016-11-28 06:46] LABS: CALCIUM SERUM 8.6 mg/dL (8.4-10.2); GLOM FILT RATE Estimated 36.9 mL/min (>60)
[2016-11-28 06:49] LABS: POTASSIUM 5.5 mmol/L (3.5-5.1)
[2016-11-29 07:03] LABS: ALBUMIN SERUM 2.8 g/dL (3.5-5.0); BILIRUBIN,TOTAL 0.5 mg/dL (0.2-2.0); BUN/CREATININE RATIO 18.09; CALCIUM SERUM 7.9 mg/dL (8.4-10.2); CREATININE SERUM 2.1 mg/dL (0.6-1.4); GLOM FILT RATE Estimated 34.9 mL/min (>60); POTASSIUM 5.3 mmol/L (3.5-5.1); PROTEIN TOTAL SERUM 5.6 g/dL (6.0-8.3)
[2016-11-29 08:41] LABS: BILIRUBIN,TOTAL 0.3 mg/dL (0.2-2.0); BUN/CREATININE RATIO 18.09; CREATININE SERUM 2.1 mg/dL (0.6-1.4); GLOM FILT RATE Estimated 34.9 mL/min (>60); POTASSIUM 5.4 mmol/L (3.5-5.1); PROTEIN TOTAL SERUM 6.4 g/dL (6.0-8.3)
[2016-11-29 12:38] LABS: ARTERIAL BLD GAS O2 SATURATION 96.5 % (90.0-100.0); ARTERIAL BLOOD GAS CARBOXY HB 0.7 %sat (0.0-9.0); ARTERIAL BLOOD GAS HCO3 18.3 mmol/L; ARTERIAL BLOOD GAS MET HB 0.8 %sat (0.0-2.0); ARTERIAL BLOOD GAS PCO2 32.1 mmHg (35.0-45.0); ARTERIAL BLOOD GAS PO2 89.9 mmHg (80.0-100); ARTERIAL BLOOD GAS pH 7.365 (7.350-7.450)
[2016-11-29 12:40] LABS: ARTERIAL BLOOD GAS ALLEN TEST NORMAL; ARTERIAL DRAW? YES
[2016-11-29 12:41] LABS: ARTERIAL BLOOD GAS ART SITE RIGHT RADIAL; ARTERIAL BLOOD GAS DELIVERY NASAL CANNULA
[2016-11-29 16:31] LABS: COMPLEMENT C3 159 mg/dL (90-180); COMPLEMENT C4 26 mg/dL (16-47)
[2016-11-29 17:12] LABS: URIC ACID 8.3 mg/dL (2.6-7.2)
[2016-11-29 18:17] LABS: OSMOLALITY,URINE 236 mOsmo/kg (250-900)
[2016-11-29 18:26] LABS: SODIUM URINE RANDOM <10 mmol/L
[2016-11-30 04:25] LABS: HEMATOCRIT 30.9 % (38.0-50.0); HEMOGLOBIN 10.8 gm/dL (13.0-16.0); MEAN CELL VOLUME 87.1 FL (83-96); MEAN CORPUSCULAR HEMOGLOBIN 30.3 PG (28-34); MEAN CORPUSCULAR HGB CONC 34.8 g/dL (30-36); MEAN PLATELET VOLUME 9.9 FL (6.5-11.5); RED BLOOD COUNT 3.55 X10e (3.90-5.60); RED CELL DISTRIBUTION WIDTH 13.2 % (11.0-15.5); WHITE BLOOD COUNT 10.8 X10e3 (4.0-10.5)
[2016-11-30 06:03] LABS: BUN/CREATININE RATIO 18.26; CALCIUM SERUM 8.1 mg/dL (8.4-10.2); CREATININE SERUM 2.3 mg/dL (0.6-1.4); GLOM FILT RATE Estimated 31.4 mL/min (>60)
[2016-12-01 05:44] LABS: HEMATOCRIT 30.4 % (38.0-50.0); HEMOGLOBIN 10.3 gm/dL (13.0-16.0); MEAN CELL VOLUME 87.7 FL (83-96); MEAN CORPUSCULAR HEMOGLOBIN 29.7 PG (28-34); MEAN CORPUSCULAR HGB CONC 33.9 g/dL (30-36); RED BLOOD COUNT 3.47 X10e (3.90-5.60); RED CELL DISTRIBUTION WIDTH 13.3 % (11.0-15.5); WHITE BLOOD COUNT 11.1 X10e3 (4.0-10.5)
[2016-12-01 06:20] LABS: ALBUMIN SERUM 2.9 g/dL (3.5-5.0); BILIRUBIN,TOTAL 0.5 mg/dL (0.2-2.0); BUN/CREATININE RATIO 25.45; CALCIUM SERUM 8.1 mg/dL (8.4-10.2); CREATININE SERUM 2.2 mg/dL (0.6-1.4); GLOM FILT RATE Estimated 33.1 mL/min (>60); POTASSIUM 4.8 mmol/L (3.5-5.1); PROTEIN TOTAL SERUM 5.8 g/dL (6.0-8.3)
[2016-12-01 13:27] LABS: ANA SCREEN Negative (Negative); HA AB IGM (HEPPAN) Nonreactive (Nonreactive); HB CORE AB IGM (HEPPAN) Nonreactive (Nonreactive); HB S AG (HEPPAN) Nonreactive (Nonreactive); HEP C AB (HEPPAN) Reactive (Nonreactive)
[2016-12-02 07:02] LABS: ALBUMIN SERUM 2.9 g/dL (3.5-5.0); BILIRUBIN,TOTAL 0.5 mg/dL (0.2-2.0); BUN/CREATININE RATIO 25.45; CREATININE SERUM 2.2 mg/dL (0.6-1.4); GLOM FILT RATE Estimated 33.1 mL/min (>60); PROTEIN TOTAL SERUM 5.5 g/dL (6.0-8.3)
[2016-12-02 07:06] LABS: POTASSIUM 5.5 mmol/L (3.5-5.1)
[2016-12-02 21:02] LABS: MYELOPEROXIDASE AB (PNL) <1.0 AI (<1.0); PROTEINASE-3 AB (PNL) <1.0 AI (<1.0)
[2016-12-03 06:51] LABS: ALBUMIN SERUM 2.8 g/dL (3.5-5.0); BUN/CREATININE RATIO 22.6; CALCIUM SERUM 7.9 mg/dL (8.4-10.2); CREATININE SERUM 2.3 mg/dL (0.6-1.4); GLOM FILT RATE Estimated 31.4 mL/min (>60); MAGNESIUM 2.4 mg/dL (1.6-3.0); PHOSPHOROUS 3.9 mg/dL (2.5-4.6); POTASSIUM 5.1 mmol/L (3.5-5.1)
[2016-12-04 06:11] LABS: HEMATOCRIT 31.2 % (38.0-50.0); HEMOGLOBIN 10.4 gm/dL (13.0-16.0); MEAN CELL VOLUME 88.3 FL (83-96); MEAN CORPUSCULAR HEMOGLOBIN 29.4 PG (28-34); MEAN CORPUSCULAR HGB CONC 33.2 g/dL (30-36); MEAN PLATELET VOLUME 9.3 FL (6.5-11.5); RED BLOOD COUNT 3.53 X10e (3.90-5.60); RED CELL DISTRIBUTION WIDTH 13.4 % (11.0-15.5); WHITE BLOOD COUNT 12.8 X10e3 (4.0-10.5)
[2016-12-04 07:01] LABS: CALCIUM SERUM 7.8 mg/dL (8.4-10.2); CREATININE SERUM 2.2 mg/dL (0.6-1.4); GLOM FILT RATE Estimated 33.1 mL/min (>60); POTASSIUM 5.2 mmol/L (3.5-5.1)
[2016-12-05 05:49] LABS: BASOPHIL# 0.1 X10e3 (0-0.3); BASOPHIL% 0.4 % (0-2.5); EOSINOPHIL# 0.2 X10e3 (0-0.7); EOSINOPHIL% 1.6 % (0.0-7.0); HEMATOCRIT 33.8 % (38.0-50.0); HEMOGLOBIN 11.3 gm/dL (13.0-16.0); LYMPHOCYTE# 3.1 X10e3 (1.0-3.5); LYMPHOCYTE% 19.9 % (17.0-45.0); MEAN CORPUSCULAR HEMOGLOBIN 29.6 PG (28-34); MEAN CORPUSCULAR HGB CONC 33.3 g/dL (30-36); MONOCYTE# 1.4 X10e3 (0-1.0); NEUTROPHIL# 10.8 X10e3 (1.5-7.1); NEUTROPHIL% 69.1 % (40-75); PLATELET COUNT 291 X10e3 (140-420); RED CELL DISTRIBUTION WIDTH 13.4 % (11.0-15.5); WHITE BLOOD COUNT 15.7 X10e3 (4.0-10.5)
[2016-12-05 06:12] LABS: ALBUMIN SERUM 3.2 g/dL (3.5-5.0); BILIRUBIN,TOTAL 0.5 mg/dL (0.2-2.0); BUN/CREATININE RATIO 26.66; CALCIUM SERUM 8.1 mg/dL (8.4-10.2); CREATININE SERUM 2.1 mg/dL (0.6-1.4); GLOM FILT RATE Estimated 34.9 mL/min (>60); POTASSIUM 5.2 mmol/L (3.5-5.1); PROTEIN TOTAL SERUM 6.1 g/dL (6.0-8.3)
[2016-12-05 06:20] LABS: DIFF IND YES
[2016-12-05 07:14] LABS: PLATELET ESTIMATE NORMAL (NORMAL); RBC NORMAL YES
[2016-12-05 09:42] LABS: PROTHROMBIN TIME (PATIENT) 10.8 SECONDS (9.6-11.5)
[2016-12-06 06:34] LABS: HEMOGLOBIN 10.1 gm/dL (13.0-16.0); MEAN CORPUSCULAR HEMOGLOBIN 29.4 PG (28-34); MEAN CORPUSCULAR HGB CONC 32.7 g/dL (30-36); MEAN PLATELET VOLUME 9.2 FL (6.5-11.5); RED BLOOD COUNT 3.45 X10e (3.90-5.60); RED CELL DISTRIBUTION WIDTH 13.4 % (11.0-15.5); WHITE BLOOD COUNT 11.3 X10e3 (4.0-10.5)
[2016-12-06 07:11] LABS: BUN/CREATININE RATIO 21.53; CALCIUM SERUM 8.1 mg/dL (8.4-10.2); CREATININE SERUM 2.6 mg/dL (0.6-1.4); GLOM FILT RATE Estimated 27.3 mL/min (>60); POTASSIUM 5.3 mmol/L (3.5-5.1)
[2016-12-06 07:16] LABS: PROCALCITONIN 0.06 NG/ML
[2016-12-06] MEDS ORDERED: OMNICEF300 MG PO (14:46)
[2016-12-06] MEDS ORDERED: LASIX20 MG PO (14:47)
[2016-12-06] MEDS ORDERED: COZAAR25 MG PO (14:48)
[2016-12-06] MEDS ORDERED: LIPITOR20 MG PO (14:48)
[2016-12-06] MEDS ORDERED: HYDRALAZINE HCL25 MG PO (14:48)
[2016-12-06] MEDS ORDERED: ALBUTEROL17 GM INH (14:50)
[2016-12-06] MEDS ORDERED: PREDNISONE PO (14:51)
[2016-12-06] MEDS ORDERED: XANAX0.5 MG PO (14:52)
[2016-12-06] MEDS ORDERED: SODIUM BICARBO650 MG PO (14:52)
[2016-12-06] MEDS ORDERED: COREG12.5 MG PO (14:52)
[2016-12-06] MEDS ORDERED: DULERA 200 MCG/13 GM INH (14:53)
[2016-12-06] MEDS ORDERED: ASPIRIN81 M2 PO (14:54)
[2016-12-06] MEDS ORDERED: ISORDIL PO (14:54)
[2016-12-06 22:46] LABS: HIV1 LOG COPIES/ML <1.30 (<1.30); HIV1COPIES/ML <20 (<20)
== END 2016-12-06 17:22 | disposition home or self-care (01) | DRG 189 ==
LOC: SED 08:20 → SEDOF 09:54 → C2A 12:16 → C3A PCU 11-29 20:00
PROVIDERS: Emergency Medicine; Hospitalist; Internal Medicine; Internal Medicine Nephrology; Physician Assistant Medical; Radiology Diagnostic Radiology
PROC: B24BZZZ Ultrasonography of Heart with Aorta (ICD-10-PCS; 2016-11-28)
PROC: 0TB13ZX Excision of Left Kidney, Percutaneous Approach, Diagnostic (ICD-10-PCS; principal; 2016-12-05 10:36)
DX: J96.00 Acute respiratory failure, unspecified whether with hypoxia or hypercapnia (principal); I50.21 Acute systolic (congestive) heart failure; J18.9 Pneumonia, unspecified organism; N17.9 Acute kidney failure, unspecified; I13.0 Hypertensive heart and chronic kidney disease with heart failure and stage 1 through stage 4 chronic kidney disease, or unspecified chronic kidney disease; N18.3 Chronic kidney disease, stage 3 (moderate); I42.9 Cardiomyopathy, unspecified; J44.1 Chronic obstructive pulmonary disease with (acute) exacerbation; N39.0 Urinary tract infection, site not specified; J44.0 Chronic obstructive pulmonary disease with (acute) lower respiratory infection; E87.1 Hypo-osmolality and hyponatremia; F17.210 Nicotine dependence, cigarettes, uncomplicated; I25.10 Atherosclerotic heart disease of native coronary artery without angina pectoris; Z95.1 Presence of aortocoronary bypass graft; Z91.19 Patient's noncompliance with other medical treatment and regimen; B19.20 Unspecified viral hepatitis C without hepatic coma; R80.9 Proteinuria, unspecified; G62.9 Polyneuropathy, unspecified; E78.5 Hyperlipidemia, unspecified; E11.65 Type 2 diabetes mellitus with hyperglycemia; G89.4 Chronic pain syndrome; E87.5 Hyperkalemia; G47.33 Obstructive sleep apnea (adult) (pediatric); M19.90 Unspecified osteoarthritis, unspecified site; T38.0X5A Adverse effect of glucocorticoids and synthetic analogues, initial encounter; Y92.9 Unspecified place or not applicable
CPT/HCPCS: 36415; 36600; 71020; 71250; 74176; 76705; 76770; 77012; 78582; 80048; 80053; 80061; 80069; 80074; 80307; 81003; 82308; 82310; 82550; 82570; 82803; 82947; 83036; 83520; 83735; 83880; 83930; 83935; 83970; 84100; 84132; 84156; 84300; 84443; 84484; 84550; 85025; 85027; 85379; 85610; 85730; 86021; 86038; 86039; 86160; 86334; 87086; 87522; 87536; 88300; 88305; 88313; 88346; 88348; 88350; 93005; 93306; 93970; 94640; 94664; 94760; 96372; 99285; A9540; A9567; J1650; J1815; J1885; J1940; J2250; J2920; J3010

== ENCOUNTER 2016-12-06 23:30 | Emergency (ER) | payer OTHER ==
--- NOTE | ~2016-12-06 | EKG ---
PATIENT: CATY JONES UNIT #: [id number] Ventricular Rate: 69 BPM Atrial Rate: 69 BPM P-R Interval: 158 ms QRS Duration: 94 ms Q-T Interval: 396 ms QTC Calculation(Bezet): 424 ms P [place]: 49 degrees Calculated R [place]: 92 degrees Calculated T [place]: 94 degrees Diagnosis Line: Normal sinus rhythm Diagnosis Line: Rightward axis Diagnosis Line: Pulmonary disease pattern T wave abnormality, Diagnosis Line: consider anterolateral ischemia Diagnosis Line: Abnormal ECG Diagnosis Line: No previous ECGs available Diagnosis Line: Confirmed by KELLY MARION MD ([id number]) on 12/10/2016 Diagnosis Line: 7:19:06 AM INTERPRETING MD: DONI YOUNG
--- NOTE | ~2016-12-06 | US113 ---
[facility] A Service of [facility] & [facility] RADIOLOGY TEXT RESULTS PATIENT: CATY JONES LOCATION: [facility] : 60 UNIT #: [id number] AGE: [address]: Vin Alfredo MD SEX: M ORDER DR: [id number] [facility] [address] [place], [place] [address] [id number] E MR#: [id number] Acc #: [id number] NAME: CATY JONES : 1960 SEX: M STUDY DATE/TIME: 12/07/2016 2:06 UNIT: [facility] ROOM: STUDY DESCRIPTION: US Scrotal Duplex Complete Attending Physician: Vin Alfredo M.D. Ordering Physician: Vin Alfredo M.D. Primary Care Physician: Guille Bach M.D. MEDICAL IMAGING REPORT This report is preliminary unless electronic signature is present EXAM Bilateral scrotal ultrasound with Doppler imaging 12/07/2016 HISTORY Scrotal pain for 1 day. COMPARISON None. FINDINGS The right testicle measures 2.8 x 2.9 x 4.3 cm. The left testicle measures 2.7 x 2.5 x 4.1 cm. Both testicles demonstrate normal homogeneous echotexture without mass lesion, and normal color and spectral Doppler flow was documented to each testicle. The right epididymis contains a 1.0 x 0.7 x 1.1 cm cyst or spermatocele. Small right scrotal hydrocele is present. Left epididymal head cyst or spermatocele measures 1.0 x 0.8 x 0.9 cm. The left epididymis appears slightly thicker, more edematous than the right, and may be slightly hyperemic. Small left scrotal hydrocele is present containing low level internal echoes or debris. Bilateral scrotal skin thickening is present. There is also a small left scrotal varicocele. IMPRESSION 1. The left epididymis appears slightly thicker than the right although not frankly hyperemic. There may be mild left epididymitis. 2. Normal sonographic appearance of the testicles with normal flow to each testicle. 3. Small left scrotal varicocele. 4. Small bilateral scrotal hydroceles. 5. Mild bilateral scrotal thickening or edema. STS. [facility] A Service of [facility] & [facility] RADIOLOGY TEXT RESULTS PATIENT: CAT[facility] JON[id number] 60 UNIT #: [id number] AGE: [address]: Vin Alfredo MD SEX: M ORDER DR: Dictated by... Olga Gooden M.D. THIS IS AN ELECTRONICALLY VERIFIED REPORT Olga Gooden M.D. at 12/11/2016 8:37 AM DEMETRIO/shantel TD: 12/07/2016 10:20 JOB #: [id number] MEDICAL IMAGING REPORT Page 1 of 1 COPY
--- NOTE | ~2016-12-06 | CT4 ---
[facility] A Service of [facility] & [facility] RADIOLOGY TEXT RESULTS PATIENT: CATY JONES LOCATION: [facility] : 60 UNIT #: [id number] AGE: [address]: Vin Alfredo MD SEX: M ORDER DR: [id number] [facility] [address] [place], [place] [address] [id number] E MR#: [id number] Acc #: [id number] NAME: CATY JONES. : 1960 SEX: M STUDY DATE/TIME: 12/07/2016 2:55 UNIT: [facility] ROOM: STUDY DESCRIPTION: CT Abd and Pelv Wo Cont Attending Physician: Vin Alfredo M.D. Ordering Physician: Vin Alfredo M.D. Primary Care Physician: Guille Bach M.D. MEDICAL IMAGING REPORT This report is preliminary unless electronic signature is present EXAM CT abdomen and pelvis without contrast, 12/07/2016 at 02:55 HISTORY Fell at home. Testicular pain day today. Lower abdominal pain. Liver failure. Hepatitis C. Previous CABG. COMPARISON CT abdomen and pelvis without contrast, 11/30/2016 PROCEDURE 3.0 mm noncontrast axial images through the abdomen and pelvis. Enteric contrast was not administered. Sagittal and coronal reformatted images were obtained. TECHNIQUE This CT exam was performed with one or more of the following radiation dose reduction techniques: automatic exposure control, adjustment of mA and/or kV according to patient size, and iterative reconstruction. FINDINGS ABDOMEN FINDINGS: Lung bases are free of consolidation. Coronary artery calcifications are present. Liver has an unremarkable noncontrast appearance. Gallbladder is contracted. The spleen, adrenals and kidneys are within normal limits. Partial fatty replaced of the pancreatic parenchyma, similar in appearance to 11/30/2016. Diffuse body wall edema. No free air or free fluid. Limited evaluation of bowel due to lack of enteric contrast but no focal bowel inflammation is seen. The appendix is normal. Moderate calcific atherosclerosis in the abdominal aorta and mesenteric vessels. PELVIS FINDINGS: Sparse diverticular changes in the sigmoid colon. No evidence of acute diverticulitis. No pelvic adenopathy or free fluid. STS. [facility] A Service of [facility] & [facility] RADIOLOGY TEXT RESULTS PATIENT: CATY JONES LOCATION: [facility] : 60 UNIT #: [id number] AGE: [address]: Vin Alfredo MD SEX: M ORDER DR: Diffuse body wall edema. The urinary bladder is moderately distended. Prostate and rectum are within normal limits. Shotty bilateral inguinal lymph nodes are unchanged and are favored to represent benign reactive findings. There is scrotal edema. No acute pelvic fracture, hip fracture or hip dislocation is seen. Advanced degenerative facet arthropathy in the lower lumbar spine. Multilevel degenerative disc and endplate changes in the lumbar spine. No acute osseous abnormalities are identified. Old right ninth and tenth rib fractures posteriorly. IMPRESSION 1. No acute findings within the abdomen or pelvis. 2. Old right rib fractures. 3. Degenerative changes of the lumbar spine. 4. Advanced calcific atherosclerosis. 5. Normal appendix. 6. Diffuse body wall edema. 7. Coronary artery calcifications. Correlate with cardiac history. 8. Scrotal wall edema. Dictated by... Olga Gooden M.D. THIS IS AN ELECTRONICALLY VERIFIED REPORT Olga Gooden M.D. at 12/11/2016 8:37 AM Yan TD: 12/07/2016 10:17 JOB #: [id number] MEDICAL IMAGING REPORT Page 1 of 1 COPY
[~2016-12-06 23:30] MED LIST changes: +ALBUTEROL17 GM INH; +ASPIRIN81 M2 PO; +COREG12.5 MG PO; +COZAAR25 MG PO; +DULERA 200 MCG/13 GM INH; +HYDRALAZINE HCL25 MG PO; +ISORDIL PO; +LASIX20 MG PO; +LIPITOR20 MG PO; +OMNICEF300 MG PO; +PREDNISONE PO; +SODIUM BICARBO650 MG PO; +XANAX0.5 MG PO
[2016-12-06 23:43] LABS: BASOPHIL# 0.1 X10e3 (0-0.3); BASOPHIL% 0.7 % (0-2.5); EOSINOPHIL# 0.1 X10e3 (0-0.7); EOSINOPHIL% 0.9 % (0.0-7.0); HEMATOCRIT 30.8 % (38.0-50.0); HEMOGLOBIN 10.3 gm/dL (13.0-16.0); LYMPHOCYTE# 1.9 X10e3 (1.0-3.5); LYMPHOCYTE% 14.5 % (17.0-45.0); MEAN CELL VOLUME 89.8 FL (83-96); MEAN CORPUSCULAR HGB CONC 33.4 g/dL (30-36); MEAN PLATELET VOLUME 8.8 FL (6.5-11.5); MONOCYTE# 1.1 X10e3 (0-1.0); MONOCYTE% 8.1 % (3.0-12.0); NEUTROPHIL# 9.9 X10e3 (1.5-7.1); NEUTROPHIL% 75.8 % (40-75); PLATELET COUNT 244 X10e3 (140-420); RED BLOOD COUNT 3.43 X10e (3.90-5.60); RED CELL DISTRIBUTION WIDTH 13.2 % (11.0-15.5)
[2016-12-06 23:44] LABS: DIFF IND NO
[2016-12-06 23:58] LABS: PARTIAL THROMBOPLASTIN TIME 26.8 SECONDS (23.5-31.3); PROTHROMBIN TIME (PATIENT) 10.7 SECONDS (9.6-11.5)
[2016-12-07 00:03] LABS: URINE SOURCE CLEAN CATCH
[2016-12-07 00:07] LABS: URINE APPEARANCE CLEAR; URINE BILIRUBIN NEG (NEG); URINE BLOOD 1+ (NEG); URINE COLOR YELLOW; URINE GLUCOSE 100 MG/DL (NEG); URINE KETONE NEG (NEG); URINE LEUKOCYTE ESTERASE NEG (NEG); URINE NITRATE NEG (NEG); URINE PH 5.5 (5-8); URINE PROTEIN 3+ (NEG); URINE SPECIFIC GRAVITY 1.012 (1.003-1.035); URINE UROBILINOGEN 0.2 MG/DL (NEG)
[2016-12-07 00:08] LABS: ALKALINE PHOSPHATASE 54 U/L (32-92); ALT (SGPT) 46 U/L (10-40); AST (SGOT) 38 U/L (10-42); BILIRUBIN, DIRECT 0.1 mg/dL (0.0-0.2); BILIRUBIN,INDIRECT 0.3 mg/dL (0.0-0.9); BILIRUBIN,TOTAL 0.4 mg/dL (0.2-2.0); BLOOD UREA NITROGEN 50 mg/dL (9-23); BUN/CREATININE RATIO 18.51; CARBON DIOXIDE 25 mmol/L (22-31); CHLORIDE 102 mmol/L (100-111); CREATININE SERUM 2.7 mg/dL (0.6-1.4); GLOM FILT RATE Estimated 26.1 mL/min (>60); GLUCOSE FASTING 213 mg/dL (70-110); POTASSIUM 5.2 mmol/L (3.5-5.1); PROTEIN TOTAL SERUM 5.9 g/dL (6.0-8.3); SODIUM 135 mmol/L (135-145)
[2016-12-07 00:10] LABS: URINE BACTERIA AUWI NEG (NEGATIVE); URINE SQUAMOUS EPITHELIAL CELL NONE SEEN /[HPF]; UWBCS1 AUWI 0-2 (0-5)
[2016-12-07 00:18] LABS: AMPHETAMINE NEG (NEG); BARBITURATES NEG (NEG); BENZODIAZEPINES POS (NEG); COCAINE NEG (NEG); MARIJUANA NEG (NEG); OPIATES POS (NEG); TRICYCLIC ANTIDEPRESSANTS NEG (NEG); U METHADONE NEG (NEG)
[2016-12-07 00:22] LABS: ALCOHOL BLOOD <5 mg/dL (0)
[2016-12-07 00:24] LABS: CULTURE INDICATED? NO
== END 2016-12-07 03:34 | disposition home or self-care (01) ==
LOC: CED 23:30
PROVIDERS: Emergency Medicine
DX: N45.1 Epididymitis (principal); F17.210 Nicotine dependence, cigarettes, uncomplicated; Z79.899 Other long term (current) drug therapy
CPT/HCPCS: 36415; 74176; 80048; 80076; 80307; 81003; 85025; 85610; 85730; 93005; 93975; 94640; 99284; G0480; J2060